=== PATIENT | male | born 1990 | race Caucasian/White ===

== ENCOUNTER → 2016-10-21 | Outpatient (CLI) | payer OTHER ==
[~2016-10-21] MED LIST: ISOVUE-370 76% 100ML VIAL (Q9967) As Ordered ONE
--- NOTE | 2016-10-21 16:33 | REP ---
s... Without and with IV contrast, without bowel contrast: There are no comparisons. The visualized lung toro are unremarkable. The hepatic parenchyma, gallbladder, pancreas and spleen are homogeneous, normal size and unremarkable on both phases of the study. The adrenals, kidneys and abdominal aorta are unremarkable. There is no bowel distension or obstruction. There is a large volume of fecal residue throughout the colon compatible with constipation. Pelvis: The appendix has a normal appearance. The bladder is unremarkable. There is no adenopathy or ascites. There is a prominent mucosal shelf at the rectosigmoid junction as a consequence of the rectosigmoid colon angulated posteriorly in the rectum abruptly angulated anteriorly and in the apposed colonic hudson coapted. No focal colonic wall mass is identified by CT. Impression: No colonic the lumen narrowing or focal colonic wall masses identified by CT there is a large volume of fecal residue throughout the colon compatible with constipation. There is a mucosal shelf at the rectosigmoid junction as a consequence of abrupt angulation of the distal colon without focal mass identified. However, given the patients symptoms follow-up with colonoscopy or barium enema might be considered. Signed by Jayro Thornton MD 10/21/2016 04:25 P
== END ==
LOC: M RAD 14:24
PROVIDERS: ATTEND Thoracic Surgery (Cardiothoracic Vascular Surgery)
DX: R19.5 Other fecal abnormalities (principal)
CPT/HCPCS: 74178; Q9967